=== PATIENT | female | born 1950 | race American Indian/Alaskan Native ===

== ENCOUNTER 2019-01-14 17:13 | Inpatient (IN) | payer MEDICARE ==
[2019-01-14 17:48] LABS: Basophils % (Auto) 0.4 % (0.0-1.8); Eosinophils # (Auto) 0.1 K/mm3 (0.0-0.4); Eosinophils % (Auto) 0.8 % (0.0-4.3); Hematocrit 36.1 % (30.3-42.9); Hemoglobin 11.9 gm/dl (10.1-14.3); Lymphocytes # (Auto) 2.5 K/mm3 (1.2-5.4); Mean Corpuscular HGB Conc 33 % (30-34); Mean Corpuscular Volume 90 fl (79-97); Monocytes # (Auto) 0.9 K/mm3 (0.0-0.8); Monocytes % (Auto) 9.6 % (0.0-7.3); Platelet Count 370 K/mm3 (140-440); Red Blood Count 4.02 M/mm3 (3.65-5.03); Red Cell Distribution Width 15.4 % (13.2-15.2)
[2019-01-14] MEDS ORDERED: NACL 0.9% 1000 ML 1,000 ML IV ONE ×3 (18:12→22:21)
[2019-01-14] MEDS ORDERED: SUBLIMAZE IV ONE (18:13)
[2019-01-14] MEDS ORDERED: NACL 0.9% 1000 ML 1,000 ML ONE (18:17)
--- NOTE | 2019-01-14 18:36 | XRay Report ---
PROCEDURE: XR CHEST 1V AP TECHNIQUE: Chest single AP HISTORY: Chest Pain COMPARISONS: FINDINGS: Cardiac and mediastinal contours are unremarkable No focal pulmonary infiltrate identified. No pleural fluid collection seen. Pulmonary vasculature is unremarkable. Note is made of the left shoulder prosthesis IMPRESSION: . This document is electronically signed by Brian Brown MD., Jan 14 2019 06:34:21 PM ET
[2019-01-14 19:20] LABS: Alanine Aminotransferase 9 units/L (7-56); Albumin 3.1 g/dL (3.9-5); BUN/Creatinine Ratio 13; Blood Urea Nitrogen 24 mg/dL (7-17); Calcium 8.6 mg/dL (8.4-10.2); Hemolysis Index 2
[2019-01-14] MEDS ORDERED: PERCOCET 5/325 PO ONE (20:03)
--- NOTE | 2019-01-14 20:08 | Emergency Department Report ---
ED General Adult HPI - General Chief complaint: Chest Pain Stated complaint: CHEST/ABDOMINAL PAIN Time Seen by Provider: 01/14/19 17:58 Source: patient, EMS (ems notes not available at time of chart dictation), RN notes reviewed Mode of arrival: Stretcher Limitations: Physical Limitation - History of Present Illness Initial comments: This is a 68-year-old female. The patient is not known to this provider previously. Her past medical history includes hypertension and fibromyalgia, left-sided shoulder prosthesis, left knee prosthesis, and her primary care doctor is Dr. Potter The patient presents to the emergency room today with a complaint of weakness. This is accompanied by bilateral hand cramping, nontraumatic left knee pain, left thigh pain, migrating to her rib cage, back, mouth and jaw. She endorses shortness of breath and weakness. She has abdominal cramping. She denies urinary symptoms. She reports a history of 3 blood clots. She reports she is not systemic anticoagulation. She reports that she does not have an IVC filter. Reportedly has at least 5 surgeries on her left leg. Pain is sharp, achy, throbbing, increases with palpation, and it decreases with rest. -: Gradual Location: chest, back, abdomen, left Radiation: other Severity scale (0 -10): 6 Quality: aching Consistency: other Improves with: medication, rest Worsens with: movement - Related Data Allergies Allergy/AdvReac Type Severity Reaction Status Date / Time No Known Allergies Allergy Unverified 01/14/19 17:27 ED Review of Systems ROS: Stated complaint: CHEST/ABDOMINAL PAIN Other details as noted in HPI Constitutional: malaise, weakness. denies: fever Eyes: denies: eye discharge ENT: denies: epistaxis Respiratory: denies: cough Cardiovascular: chest pain Gastrointestinal: abdominal pain Genitourinary: denies: dysuria Musculoskeletal: back pain, arthralgia, myalgia Skin: denies: lesions Neurological: weakness Psychiatric: anxiety ED Past Medical Hx - Past Medical History Hx Hypertension: Yes Hx CVA: Yes (30 years ago) Additional medical history: fibromyalgia - Surgical History Additional Surgical History: left leg x5 - Social History Smoking Status: Former Smoker Substance Use Type: Alcohol ED Physical Exam - General Limitations: Physical Limitation General appearance: alert, anxious, in distress, obese - Head Head exam: Present: atraumatic, normocephalic - Eye Eye exam: Present: normal appearance, PERRL, EOMI. Absent: nystagmus - ENT ENT exam: Present: normal exam, normal orophraynx, mucous membranes moist, normal external ear exam - Neck Neck exam: Present: normal inspection, full ROM. Absent: tenderness, meningismus - Respiratory Respiratory exam: Present: normal lung sounds bilaterally. Absent: respiratory distress - Cardiovascular Cardiovascular Exam: Present: regular rate, normal rhythm, normal heart sounds. Absent: bradycardia, tachycardia, irregular rhythm, systolic murmur, diastolic murmur, rubs, gallop - GI/Abdominal GI/Abdominal exam: Present: soft. Absent: distended, tenderness, guarding, rebound, rigid, pulsatile mass - Extremities Exam Extremities exam: Present: normal inspection, tenderness (there is left knee t enderness lateral, medial and anterior. Evidence of old left knee surgical intervention. There is no redness, pus or streaking. Muscular compartment soft. 2+ pulses noted in the bilateral upper, lower extremities.), other (2+ pulses noted in the bilateral upper, lower extremities. Compartments soft. No long bony tenderness. The pelvis is stable.) - Back Exam Back exam: Present: normal inspection, full ROM. Absent: tenderness, CVA tenderness (R), paraspinal tenderness, vertebral tenderness - Neurological Exam Neurological exam: Present: alert, oriented X3, other (Extraocular movements intact. Tongue midline. No facial droop. Facial sensation intact to light touch in the V1, V2, V3 distribution bilaterally. 5 and 5 strength in 4 extremities.. Sensation is intact to light touch in 4 extremities.). Absent: motor sensory deficit - Psychiatric Psychiatric exam: Present: anxious - Skin Skin exam: Present: warm, dry, intact, normal color. Absent: rash ED Course Vital Signs 01/14/19 01/14/19 01/14/19 17:24 17:27 17:30 Temperature Pulse Rate 99 H 98 H 97 H Respiratory 14 18 15 Rate Blood Pressure 95/59 95/59 Blood Pressure [Left] O2 Sat by Pulse 96 94 Oximetry 01/14/19 01/14/19 01/14/19 17:46 18:00 18:27 Temperature Pulse Rate 85 84 91 H Respiratory 14 14 17 Rate Blood Pressure 95/59 95/59 95/59 Blood Pressure [Left] O2 Sat by Pulse 100 81 L 96 Oximetry 01/14/19 01/14/19 01/14/19 18:30 18:43 19:31 Temperature 98.8 F Pulse Rate 90 77 Respiratory 19 16 18 Rate Blood Pressure 93/47 Blood Pressure 143/85 [Left] O2 Sat by Pulse 98 98 Oximetry 01/14/19 01/14/19 20:00 21:31 Temperature Pulse Rate 81 Respiratory 19 15 Rate Blood Pressure 110/42 94/43 Blood Pressure [Left] O2 Sat by Pulse Oximetry - Reevaluation(s) Reevaluation #1: 01/14/19 20:15 Differential diagnosis, including but not limited to: Pneumonia, urinary tract infection, intra-abdominal infection, bacteremia, dehydration, myositis, pulmonary embolus, arthritis, fibromyalgia exacerbation, chronic musculoskeletal pain Acute coronary syndrome Assessment and plan: 68-year-old female with complaints of musculoskeletal pain, rib pain, abdominal pain, chest discomfort, initially found to be hypotensive and generally weak. Laboratory studies suggest renal insufficiency. Not tachycardic or hypoxic. Range of motion and bilateral legs, left greater than right but limited secondary to chronic arthritis, debility. There is no redness, pus or streaking noted, muscular compartments are soft, external cutaneous exam is not consistent with cellulitis, myositis, or deep space tissue infection. CT scan of the chest, abdomen, pelvis is pending. Nuclear medicine studies pending at this time. We will admit the patient to the medical service for hypotension, now resolved, nonspecific chest discomfort, renal insufficiency once her initial diagnostics have resulted Reevaluation #2: 01/14/19 21:20 CT scan of the chest, abdomen, pelvis negative for acute medical or emergent disease. Urinalysis reviewed and appreciated. Nonspecific findings noted. We will cover empirically with Macrobid, although feel that urinary tract infection is unlikely at this time, given urinalysis results. Urine culture ordered. Reevaluation #3: 01/14/19 22:24 nuclear medicine study is low probability for pulmonary embolus. Repeat troponin, repeat EKG ordered. Blood pressure in the high 90s at this time. Additional IV fluids ordered. Case presented to Hospital physician, Dr. Levine, who will accept the patient to the medical service. - EJ/Peripheral Line Neck R Time Out Performed: Yes Indications: nurses unable to establis Skin Cleansed in Sterile Fashion: Yes Size: 18 Dressing Placed: Tegaderm Patient Tolerated Procedure: other (minimal infiltration noted, line pulled back, re-advance, flushed without difficulty.) ED Medical Decision Making - Lab Data Result diagrams: 01/14/19 17:35 01/14/19 18:44 Vital Signs 01/14/19 01/14/19 01/14/19 17:24 17:27 17:30 Temperature Pulse Rate 99 H 98 H 97 H Respiratory 14 18 15 Rate Blood Pressure 95/59 95/59 Blood Pressure [Left] O2 Sat by Pulse 96 94 Oximetry 01/14/19 01/14/19 01/14/19 17:46 18:00 18:27 Temperature Pulse Rate 85 84 91 H Respiratory 14 14 17 Rate Blood Pressure 95/59 95/59 95/59 Blood Pressure [Left] O2 Sat by Pulse 100 81 L 96 Oximetry 01/14/19 01/14/19 01/14/19 18:30 18:43 19:31 Temperature 98.8 F Pulse Rate 90 77 Respiratory 19 16 18 Rate Blood Pressure 93/47 Blood Pressure 143/85 [Left] O2 Sat by Pulse 98 98 Oximetry Laboratory Last Values WBC 9.8 K/mm3 (4.5-11.0) 01/14/19 17:35 RBC 4.02 M/mm3 (3.65-5.03) 01/14/19 17:35 Hgb 11.9 gm/dl (10.1-14.3) 01/14/19 17:35 Hct 36.1 % (30.3-42.9) 01/14/19 17:35 MCV 90 fl (79-97) 01/14/19 17:35 MCH 30 pg (28-32) 01/14/19 17:35 MCHC 33 % (30-34) 01/14/19 17:35 RDW 15.4 % (13.2-15.2) H 01/14/19 17:35 Plt Count 370 K/mm3 (140-440) 01/14/19 17:35 Lymph % (Auto) 26.0 % (13.4-35.0) 01/14/19 17:35 [place] % (Auto) 9.6 % (0.0-7.3) H 01/14/19 17:35 Eos % (Auto) 0.8 % (0.0-4.3) 01/14/19 17:35 Baso % (Auto) 0.4 % (0.0-1.8) 01/14/19 17:35 Lymph # 2.5 K/mm3 (1.2-5.4) 01/14/19 17:35 [place] # 0.9 K/mm3 (0.0-0.8) H 01/14/19 17:35 Eos # 0.1 K/mm3 (0.0-0.4) 01/14/19 17:35 Baso # 0.0 K/mm3 (0.0-0.1) 01/14/19 17:35 Seg Neutrophils % 63.2 % (40.0-70.0) 01/14/19 17:35 Seg Neutrophils # 6.2 K/mm3 (1.8-7.7) 01/14/19 17:35 Sodium 141 mmol/L (137-145) 01/14/19 18:44 Potassium 4.3 mmol/L (3.6-5.0) 01/14/19 18:44 Chloride 105.5 mmol/L (98-107) 01/14/19 18:44 Carbon Dioxide 24 mmol/L (22-30) 01/14/19 18:44 Anion Gap 16 mmol/L 01/14/19 18:44 BUN 24 mg/dL (7-17) H 01/14/19 18:44 Creatinine 1.9 mg/dL (0.7-1.2) H 01/14/19 18:44 Estimated GFR 32 ml/min 01/14/19 18:44 BUN/Creatinine Ratio 13 % 01/14/19 18:44 Glucose 105 mg/dL (65-100) H 01/14/19 18:44 Lactic Acid 1.00 mmol/L (0.7-2.0) 01/14/19 18:44 Calcium 8.6 mg/dL (8.4-10.2) 01/14/19 18:44 Magnesium 1.80 mg/dL (1.7-2.3) 01/14/19 18:44 Total Bilirubin < 0.20 mg/dL (0.1-1.2) 01/14/19 18:44 AST 13 units/L (5-40) 01/14/19 18:44 ALT 9 units/L (7-56) 01/14/19 18:44 Alkaline Phosphatase 59 units/L (35-129) 01/14/19 18:44 Total Creatine Kinase 60 units/L (30-135) 01/14/19 18:44 Troponin T < 0.010 ng/mL (0.00-0.029) 01/14/19 17:35 Total Protein 6.9 g/dL (6.3-8.2) 01/14/19 18:44 Albumin 3.1 g/dL (3.9-5) L 01/14/19 18:44 Albumin/Globulin Ratio 0.8 % 01/14/19 18:44 Lipase 26 units/L (13-60) 01/14/19 18:44 - EKG Data -: EKG Interpreted by Me EKG shows normal: sinus rhythm Rate: normal - EKG Data When compared to previous EKG there are: previous EKG unavailable 01/14/19 20:18 This is a normal sinus rhythm, 88 bpm, left axis deviation, left anterior fascicular block, QTC prolonged, this EKG is not consistent with ST elevation myocardial infarction, this is an abnormal EKG, this EKG is not consistent with STEMI, there is no prior EKG available for comparison at this time. - Radiology Data Radiology results: report reviewed, image reviewed interpreted by me: X-ray of the bilateral knees is negative for acute disease, arthritic changes noted, bilateral knee prostheses are noted. X-ray of the chest is negative for acute disease Critical care attestation.: If time is entered above; I have spent that time in minutes in the direct care of this critically ill patient, excluding procedure time. ED Disposition Clinical Impression: Hypotensive episode, Renal insufficiency, Polyarthritis Disposition: OP ADMIT IP TO THIS HOSP Is pt being admited?: Yes Condition: Fair Referrals: ELADIA POTTER MD [Primary Care Provider] - 3-5 Days
[2019-01-14 20:34] LABS: Bilirubin,Urine NEG (Negative); Blood,Urine NEG (Negative); Color,Urine Yellow (Yellow); Hyaline Casts,Urine 41 /LPF; Mucus,Urine 3+ /HPF
--- NOTE | 2019-01-14 21:00 | Cat Scan Report ---
PROCEDURE: CT CHEST WO CON TECHNIQUE: Computerized axial tomography of the chest was performed without contrast material. This study is performed without intravenous contrast and the sensitivity for pathology, including neoplasm s, adenopathy, abscess, pulmonary embolism and aortic dissection, is reduced. CT DOSE LENGTH PRODUCT: 948.2 mGycm HISTORY: rib pain chest pain COMPARISONS: None . FINDINGS: Heart and pericardium: Heart is enlarged. There is a pericardial effusion.. Thoracic aorta: Aorta is tortuous. There is no aneurysm.. Pulmonary vasculature: Normal. Lymph nodes: No enlarged thoracic lymph nodes. Lungs: Lungs are expanded and clear. There are no infiltrates. There are no pulmonary nodules or mas ses.. Pleural space: There is no pleural effusion or pneumothorax. Musculoskeletal structures: No significant abnormality. Upper abdominal structures: Images of the upper abdomen demonstrate evidence of a cholecystectomy. T here are ectopic gallstones in the gallbladder fossa and in Morison's pouch. IMPRESSION: Heart is enlarged. There is a pericardial effusion.. Aorta is tortuous. There is no aneurysm.. Lungs are expanded and clear. There are no infiltrates. There are no pulmonary nodules or masses.. There is no pleural effusion or pneumothorax. Images of the upper abdomen demonstrate evidence of a cholecystectomy. There are ectopic gallstones i n the gallbladder fossa and in Morison's pouch.. This document is electronically signed by Reid Moore MD., Jan 14 2019 08:58:32 PM ET
--- NOTE | 2019-01-14 21:03 | Cat Scan Report ---
PROCEDURE: CT ABDOMEN PELVIS WO CON TECHNIQUE: Computerized axial tomography of the abdomen and pelvis was performed without intravenous contrast. This study is performed without intravascular contrast material and its sensitivity for ab dominal and pelvic pathology, including neoplasms, inflammation, abscess, free fluid, thrombosis, art erial dissection and infarction, is reduced compared with a contrast enhanced study. CT DOSE LENGTH PRODUCT: 1638.8 mGycm HISTORY: rib pain chest pain abd pain COMPARISONS: None . FINDINGS: Visualized lower thorax: No significant abnormality. Liver: Normal size and attenuation. Spleen: Normal size and attenuation. Gallbladder and biliary system: There has been a cholecystectomy. There are ectopic gallstones in the gallbladder fossa and in Morison's pouch.. Pancreas: Normal. Adrenals: Normal. Kidneys: There is a 2 cm cyst in the midpole of the right kidney. There are no kidney stones. There i s no hydronephrosis.. GI tract: There is no bowel obstruction, colitis or enteritis. There are diverticula of the colon. T he appendix is normal. . Lymph nodes and mesentery: Normal. Vasculature: Normal.. Bladder: Normal. Reproductive organs: There has been a hysterectomy.. Peritoneum: There is no ascites or free air, abscess or adenopathy.. Musculoskeletal structures: No significant abnormality. IMPRESSION: There has been a cholecystectomy. There are ectopic gallstones in the gallbladder fossa and in Moriso n's pouch.. There is a 2 cm cyst in the midpole of the right kidney. There are no kidney stones. There is no hydr onephrosis.. There is no bowel obstruction, colitis or enteritis. There are diverticula of the colon. The appendix is normal. . There has been a hysterectomy. There is no ascites or free air, abscess or adenopathy. This document is electronically signed by Reid Moore MD., Jan 14 2019 09:01:51 PM ET
[2019-01-14] MEDS ORDERED: MACROBID PO ONE (21:20)
--- NOTE | 2019-01-14 21:47 | XRay Report ---
PROCEDURE: XR KNEE BILAT 1-2V TECHNIQUE: Bilateral knees 3 views left and 3 views right HISTORY: bl knee pain COMPARISONS: FINDINGS: There is left total knee replacement. There is some fragmentation and lucency seen along the medial t ibial plateau which could reflect loosening. Prior exams could be obtained for comparison this would be helpful. No acute fracture definitively identified. No effusion identified. There is right total knee replacement. Components are intact and demonstrate expected positioning. No abnormal bony lucencies are identified. No evidence for joint effusion IMPRESSION: Bilateral knee prosthesis There is some lucency in fragmentation seen along the medial aspect tibial component of the left knee prosthesis. Could reflect loosening. Suggest comparison with prior exam of these could be obtained. This document is electronically signed by Brian Brown MD., Jan 14 2019 09:45:41 PM ET
--- NOTE | 2019-01-14 22:06 | Nuclear Medicine Report ---
PROCEDURE: NM PULMONARY QUANTITATIVE DIFFERENTIAL PERFUSION AND VENTILATION IMAGING. TECHNIQUE: 5.9 mCi Tc-99m MAA was injected IV for quantitative differential pulmonary perfusion imag ing in multiple projections. 19.2 mCi xenon-133 was inhaled for quantitative differential pulmonary v entilation imaging in multiple projections. Injection site: RIGHT antecubital fossa. CPT 58859 REGULATORY GUIDELINES: The patient was released based upon guidelines established in [facility] Regulat ions for Protection Against Radiation, Chapter 1199-10-20-35, Release of Individuals Containing Radio active Drugs or Implants. HISTORY: Chest pain COMPARISONS: None . FINDINGS: Perfusion: No defects . Ventilation: No defects . IMPRESSION: Normal Examination . This document is electronically signed by Reid Moore MD., Jan 14 2019 10:04:33 PM ET
--- NOTE | 2019-01-14 23:11 | History and Physical Report ---
History of Present Illness Date of examination: 01/14/19 History of present illness: 68-year-old male with a history of hypertension, previous CVA, fibromyalgia comes emergency room complaining of cramps in her hands. Also felt like something was squeezing her chest which was constant and involve her bilateral shoulders, intensity 5/10. Also complaining of left knee pain going up to following. Denies nausea vomiting, shortness breath, diaphoresis or palpitation3. Patient was hypertensive in the emergency room to which she responded to fluid Review of systems Constitutional: no weight loss, chills, fever Ears, eyes, nose, mouth and throat: no nasal congestion, no nasal discharge, no sinus pressure, no vision change, no red eye. Neck: No neck pain or rigidity. Cardiovascular: no palpitations, +chest pain Respiratory: no cough, shortness of breath Gastrointestinal: no hematochezia, abdominal pain Genitourinary : no frequency , no hematuria Musculoskeletal: no joint swelling or muscle ache Integumentary: no rash, no pruritis Neurological: no parathesias, no focal weakness Endocrine: no cold or heat intolerance, no polyuria or polydipsia Hematologic/Lymphatic: no easy bruising, no easy bleeding, no gland swelling Allergic/Immunologic: no urticaria, no angioedema. PAST MEDICAL HISTORY: hypertension, previous CVA, fibromyalgia PAST SURGICAL HISTORY: Left leg 5, right leg, left knee, shoulder, cholecystectomy SOCIAL HISTORY: Denies alcohol, drugs, tobacco FAMILY HISTORY: Hypertension Medications and Allergies Allergies Allergy/AdvReac Type Severity Reaction Status Date / Time No Known Allergies Allergy Unverified 01/14/19 17:27 Active Meds: Active Medications Sodium Chloride (Nacl 0.9% 1000 Ml) 1,000 mls @ 999 mls/hr IV BOLUS ONE Stop: 01/14/19 23:21 Exam - Physical Exam Narrative exam: General Apperance: The patient lying in bed, breathing comfortable HEENT: Normocephalic, atraumatic. Pupils equally round and reactive to light, EOMI, no sclericterus or JVD or thyromegaly or nodule. , no carotid bruit, mucous membranes moist, no exudate or erythema Heart: S1-S2, regular is rhythm Lungs: Clear to auscultation bilaterally, breathing comfortable Abdomen: Positive bowel sounds, soft, nontender, nondistended, no organomegaly Extremities: No edema cyanosis clubbing Skin: no rash, nodule, warm and dry Neuro: cranial nerves 2-12 intact, speech is fluent, motor/sensory intact - Constitutional Vitals: Temp Pulse Resp BP Pulse Ox 98.8 F 81 15 94/43 98 01/14/19 19:31 01/14/19 21:31 01/14/19 21:31 01/14/19 21:31 01/14/19 19:31 Results - Labs CBC & Chem 7: 01/14/19 17:35 01/14/19 18:44 Labs: Abnormal lab results 01/14/19 01/14/19 01/14/19 Range/Units 17:35 18:44 20:16 RDW 15.4 H (13.2-15.2) % [place] % (Auto) 9.6 H (0.0-7.3) % [place] # 0.9 H (0.0-0.8) K/mm3 BUN 24 H (7-17) mg/dL Creatinine 1.9 H (0.7-1.2) mg/dL Glucose 105 H (65-100) mg/dL Albumin 3.1 L (3.9-5) g/dL Urine WBC (Auto) 16.0 H (0.0-6.0) /HPF - Imaging and Cardiology Chest x-ray: report reviewed CT scan - abdomen: report reviewed CT scan - chest: report reviewed CT scan - pelvis: report reviewed Assessment and Plan V/Q normal Assessment Chest pain, rule out ACS Acute renal insufficiency UTI Hypertension CVA Plan Admit to medicine Start IV fluids, check cardiac enzymes, stress test Dopplers of the lower extremity was ordered IV Rocephin Start aspirin, DVT prophylaxis Follow-up medication reconciliation
[2019-01-14] MEDS ORDERED: ZOFRAN IV PRN (23:42)
[2019-01-14] MEDS ORDERED: TYLENOL PO PRN (23:42)
[2019-01-14] MEDS ORDERED: SODIUM CHLORIDE FLUSH SYRINGE 10 ML IV PRN (23:42)
[2019-01-15] MEDS ORDERED: APRESOLINE IV PRN (00:03)
[2019-01-15 01:41] LABS: Creatine Kinase MB 1.3 ng/mL (0.0-4.0)
[2019-01-15] MEDS: PERCOCET 5/325 PO PRN ×3 (04:30→17:47)
[2019-01-15 05:54] LABS: Basophils % (Auto) 0.7 % (0.0-1.8); Eosinophils # (Auto) 0.1 K/mm3 (0.0-0.4); Eosinophils % (Auto) 1.9 % (0.0-4.3); Hematocrit 31.9 % (30.3-42.9); Hemoglobin 10.6 gm/dl (10.1-14.3); Lymphocytes # (Auto) 2.3 K/mm3 (1.2-5.4); Lymphocytes % (Auto) 33.7 % (13.4-35.0); Mean Corpuscular HGB Conc 33 % (30-34); Mean Corpuscular Volume 89 fl (79-97); Monocytes # (Auto) 0.7 K/mm3 (0.0-0.8); Monocytes % (Auto) 10.8 % (0.0-7.3); Platelet Count 315 K/mm3 (140-440); Red Blood Count 3.58 M/mm3 (3.65-5.03); Red Cell Distribution Width 15.6 % (13.2-15.2)
[2019-01-15 06:04] LABS: Creatine Kinase MB 1.3 ng/mL (0.0-4.0)
[2019-01-15 06:09] LABS: Calcium 8.2 mg/dL (8.4-10.2)
--- NOTE | 2019-01-15 09:33 | Vascular Lab Report ---
PROCEDURE: VL VENOUS DUPLEX LE BILAT TECHNIQUE: Longitudinal and transverse grayscale, color, and Doppler sonographic images of the bilat eral lower extremities were performed HISTORY: b/l lower ext pain, l>r polyarthritis, renal insufficiency, hypertension, history of multipl e knee surgeries on the left COMPARISONS: None FINDINGS: Venous system is anechoic and fully compressible at all levels. Normal respiratory variability and augmentation. No popliteal cyst. IMPRESSION: No evidence for deep venous thrombosis from the groins to the infrapopliteal regions bilateral lower extremities.. This document is electronically signed by Olga Sarmiento MD., Jan 15 2019 09:31:50 AM ET
[2019-01-15] MEDS: LOVENOX SUB-Q SCH (09:53)
[2019-01-15] MEDS: ROCEPHIN/NS 1 GM/50 ML 1 GM/50 ML BAG IV SCH (09:53)
[2019-01-15] MEDS: SODIUM CHLORIDE FLUSH SYRINGE 10 ML IV SCH ×2 (09:54→22:42)
[2019-01-15] MEDS: NACL 0.9% 1000 ML 1,000 ML IV SCH ×2 (09:54→17:30)
[2019-01-15] MEDS: LYRICA PO SCH ×2 (22:38)
[2019-01-16] MEDS: NACL 0.9% 1000 ML 1,000 ML IV SCH (02:16)
[2019-01-16] MEDS: PERCOCET 5/325 PO PRN ×2 (07:13→15:08)
[2019-01-16] MEDS ORDERED: ALDACTONE PO SCH (10:00)
--- NOTE | 2019-01-16 11:33 | Progress Note ---
Assessment and Plan Chest pain, rule out ACS ROSALEE, likely vasomotor nephropathy UTI Hypertension CVA Plan monitor at medicine cont IV fluids, negative cardiac enzymes, stress test tomorrow Dopplers of the lower extremity was ordered cont IV Rocephin, aspirin, statin DVT prophylaxis resume home meds Subjective Date of service: 01/15/19 Interval history: Patient seen and examined No acute event O/N plan for stress test tomorrow, getting Iv fluid Objective - Constitutional Vitals: Vital Signs - 12hr 01/15/19 01/16/19 01/16/19 23:35 04:23 07:13 Temperature 98.2 F 98.1 F Pulse Rate 90 80 Respiratory 17 18 20 Rate Blood Pressure 124/69 146/82 O2 Sat by Pulse 95 98 Oximetry 01/16/19 01/16/19 08:35 08:36 Temperature 97.7 F Pulse Rate 79 Respiratory 18 Rate Blood Pressure 138/81 O2 Sat by Pulse 97 Oximetry General appearance: Present: no acute distress, obese (is), other (elder AAF) - EENT Eyes: PERRL, EOM intact ENT: hearing intact, clear oral mucosa Ears: bilateral: normal - Neck Neck: supple, normal ROM - Respiratory Respiratory effort: normal Respiratory: bilateral: CTA - Cardiovascular Rhythm: regular Heart Sounds: Present: S1 & S2. Absent: gallop, rub Extremities: pulses intact, No edema, normal color, Full ROM - Gastrointestinal General gastrointestinal: Present: soft, non-tender, non-distended, normal bowel sounds - Integumentary Integumentary: clear, warm, dry - Musculoskeletal Musculoskeletal: 1, strength equal bilaterally - Neurologic Neurologic: moves all extremities - Psychiatric Psychiatric: memory intact, appropriate mood/affect, intact judgment & insight - Labs CBC & Chem 7: 01/15/19 04:35 01/16/19 12:48
[2019-01-16] MEDS ORDERED: LOVENOX SUB-Q SCH (12:00)
[2019-01-16] MEDS ORDERED: LEXISCAN IV ONE ×2 (12:18→12:54)
[2019-01-16 13:35] LABS: BUN/Creatinine Ratio 23; Blood Urea Nitrogen 16 mg/dL (7-17); Calcium 8.3 mg/dL (8.4-10.2); Hemolysis Index 10
[2019-01-16] MEDS: LYRICA PO SCH ×2 (13:35→13:36)
[2019-01-16] MEDS: SODIUM CHLORIDE FLUSH SYRINGE 10 ML IV SCH (13:36)
[2019-01-16] MEDS: ROCEPHIN/NS 1 GM/50 ML 1 GM/50 ML BAG IV SCH (13:36)
[2019-01-16] MEDS: LOVENOX SUB-Q SCH (13:49)
--- NOTE | 2019-01-16 16:20 | Discharge Summary ---
<CORRIERONNIE Carmella - Last Filed: 01/16/19 20:32> Providers - Providers Date of Admission: 01/14/19 23:08 Attending physician: EUN FRANK Primary care physician: ELADIA COPPOLA Hospitalization Condition: Fair Disposition: DC-01 TO HOME OR SELFCARE Exam - Constitutional Vitals: Temp Pulse Resp BP Pulse Ox 98.3 F 74 18 136/75 98 01/16/19 16:57 01/16/19 16:56 01/16/19 16:56 01/16/19 16:56 01/16/19 16:56 Plan Follow up with: ELADIA COPPOLA MD [Primary Care Provider] - 3-5 Days Prescriptions: AtorvaSTATin [Lipitor] 40 mg PO QHS #30 tab Aspirin [Aspirin BABY CHEW TAB] 81 mg PO QDAY #30 tab.chew amLODIPine [Norvasc] 10 mg PO DAILY #30 tab Pantoprazole [Protonix] 40 mg PO QDAY #30 tablet <EUN FRANK - Last Filed: 02/17/19 02:20> Providers - Providers Date of Admission: 01/14/19 23:08 Date of discharge: 01/16/19 Attending physician: EUN FRANK Primary care physician: ELADIA COPPOLA Hospitalization Reason for admission: Pertinent studies: CXR Chest CT Abdomen/pelvis CT VQ scan knee xry lower extremity Doppler Exercise stress test Hospital course: 68-year-old male with a history of hypertension, previous CVA, fibromyalgia came to emergency room complaining of cramps in her hands, Also felt like something was squeezing her chest which was constant and involve her bilateral shoulders. Patient was hypotensive in the emergency room which improved with iv fluid. Patient was admitted to evaluate for chest pain, her exercise stress test was normal. Patient was then discharged home in stable condition. Discharge Diagnosis: Chest pain, ruled out ACS, likely GERD ROSALEE, likely vasomotor nephropathy, resolved with iv fluid UTI, treated with abx Hypotension, medication induced, resolved with IV fluid Hypertension, stable, med adjusted CVA, no focal residual deficit Osteoarthritis, stable Time spent for discharge: 34 minutes Core Measure Documentation - Palliative Care Palliative Care/ Comfort Measures: Not Applicable - Core Measures Any of the following diagnoses?: none Exam - Constitutional Vitals: Temp Pulse Resp BP Pulse Ox 97.7 F 79 18 124/77 97 01/16/19 08:36 01/16/19 08:35 01/16/19 08:35 01/16/19 12:55 01/16/19 08:35 General appearance: Present: no acute distress, obese - EENT Eyes: Present: PERRL ENT: hearing intact, clear oral mucosa - Neck Neck: Present: supple, normal ROM - Respiratory Respiratory effort: normal Respiratory: bilateral: CTA - Cardiovascular Heart Sounds: Present: S1 & S2. Absent: rub, click - Extremities Extremities: pulses symmetrical, No edema Peripheral Pulses: within normal limits - Abdominal General gastrointestinal: Present: soft, non-tender, non-distended, normal bowel sounds - Integumentary Integumentary: Present: clear, warm, dry - Musculoskeletal Musculoskeletal: gait normal, strength equal bilaterally - Psychiatric Psychiatric: appropriate mood/affect, intact judgment & insight - Neurologic Neurologic: CNII-XII intact, moves all extremities Plan Activity: advance as tolerated, fall precautions Weight Bearing Status: Weight Bear as Tolerated Diet: low fat, low salt
[2019-01-16 16:57] VITALS: BP 136/75
[2019-01-16] MEDS ORDERED: NON-FORMULARY (Pregabalin [Lyrica] 200 MG) PO SCH (22:00)
--- NOTE | 2019-01-17 05:55 | Treadmill Report ---
THALLIUM STRESS TEST LEFT VENTRICLE: Left ventricular chamber size is within normal spread. Perfusion study demonstrates normal apical thinning, otherwise, homogeneous uptake of the tracer in all segments, no significant defects identified. Gated analysis demonstrates normal left ventricular systolic function, ejection fraction of 67%. CONCLUSION: Normal myocardial perfusion study. JOB# [id number] CA/NTS
== END 2019-01-16 21:20 | disposition home or self-care (01) | DRG 689 ==
LOC: ED 17:13 → 4A 23:08
PROVIDERS: ADMIT Internal Medicine; ATTEND Internal Medicine
DX: N39.0 Urinary tract infection, site not specified (principal); N17.0 Acute kidney failure with tubular necrosis; Z72.89 Other problems related to lifestyle; I95.9 Hypotension, unspecified; R07.9 Chest pain, unspecified; I10 Essential (primary) hypertension; M79.7 Fibromyalgia; M19.90 Unspecified osteoarthritis, unspecified site; Z86.73 Personal history of transient ischemic attack (TIA), and cerebral infarction without residual deficits; Z90.49 Acquired absence of other specified parts of digestive tract; Z82.49 Family history of ischemic heart disease and other diseases of the circulatory system
CPT/HCPCS: 36415; 71045; 71250; 74176; 78452; 78582; 80048; 80053; 81001; 82140; 82550; 82553; 83690; 83735; 84484; 85025; 87040; 87086; 93005; 93010; 93017; 93970; 96361; 96374; 99406; G0378; A9502; A9540; A9558; J0696; J1650; J2785; J3010; J7030